=== PATIENT | female | born 1940 | race Caucasian/White ===

== ENCOUNTER 2019-08-16 06:28 | Outpatient (RCR) | payer MEDICARE, OTHER, SELFPAY | END 2019-09-12 23:00 | disposition home or self-care (01) | LOC: SPT 06:28 | PROVIDERS: Family Provider Internal Medicine; PCP Internal Medicine; Visit Provider Orthopaedic Surgery | DX: Z47.1 Aftercare following joint replacement surgery (principal); Z96.642 Presence of left artificial hip joint | CPT/HCPCS: 97110; 97116; 97161 ==

== ENCOUNTER 2019-08-29 10:25 | Outpatient (CLI) | payer MEDICARE, OTHER, SELFPAY ==
--- NOTE | 2019-08-29 10:36 | XRR_ITS ---
PROCEDURE INFORMATION: Exam: XR Left Hip with Pelvis when Performed Exam date and time: 08/29/2019 10:51 AM Age: 78 years old Clinical indication: Hip pain; Left hip; Additional info: Left hip pain for 2 days TECHNIQUE: Imaging protocol: XR Left hip with pelvis when performed. Views: 2 or 3 views. [place] [facility] [place] 08/12/2014 10:53 AM FINDINGS: Bones/joints: The patient has had a prior left total hip arthroplasty. The femoral component is in the acetabular component. There is an unusual lucency in the superior aspect of the acetabular cup. This might represent a fractured component. There is associated periprosthetic lucency at the superior aspect of the acetabular cup. No acute osseous fracture. Soft tissues: No acute soft tissue abnormality. XR/XR hip LT 2-3V wo/w pel* [id number] IMPRESSION: Linear lucency in the superior acetabular cup which may represent fractured component.
== END 2019-08-29 10:26 | disposition home or self-care (01) ==
LOC: RAD 10:31
PROVIDERS: Family Provider Internal Medicine; PCP Internal Medicine; Visit Provider Orthopaedic Surgery
DX: M25.552 Pain in left hip (principal); Z96.642 Presence of left artificial hip joint
CPT/HCPCS: 73502

== ENCOUNTER 2019-10-03 09:57 | Outpatient (CLI) | payer MEDICARE, OTHER, SELFPAY ==
--- NOTE | 2019-10-03 10:03 | XR_ITS ---
WS: [id number] XR hip LT 2-3V wo/w pel* [id number] REASON FOR EXAM: LEFT HIP PAIN FINDINGS: Total hip replacement on the left satisfactory aligned prosthesis satisfactory as well as t he acetabular component. XR/XR hip LT 2-3V wo/w pel* [id number] IMPRESSION: Total hip replacement on the left satisfactory alignment.
== END 2019-10-03 09:58 | disposition home or self-care (01) ==
LOC: RAD 10:01
PROVIDERS: Family Provider Internal Medicine; PCP Internal Medicine; Visit Provider Orthopaedic Surgery
DX: M25.552 Pain in left hip (principal); Z96.642 Presence of left artificial hip joint
CPT/HCPCS: 73502

== ENCOUNTER 2019-10-12 08:51 | Outpatient (RCR) | payer MEDICARE, OTHER, SELFPAY | END 2019-10-13 23:59 | disposition home or self-care (01) | LOC: SPT 08:51 | PROVIDERS: Family Provider Internal Medicine; PCP Internal Medicine; Referring Provider Orthopaedic Surgery; Visit Provider Orthopaedic Surgery | DX: Z47.1 Aftercare following joint replacement surgery (principal); Z96.642 Presence of left artificial hip joint | CPT/HCPCS: 97110; 97162 ==

== ENCOUNTER 2019-10-14 06:00 | Outpatient (RCR) | payer MEDICARE, OTHER, SELFPAY | END 2019-11-01 10:31 | disposition home or self-care (01) | LOC: SPT 06:00 | PROVIDERS: Family Provider Internal Medicine; PCP Internal Medicine; Referring Provider Orthopaedic Surgery; Visit Provider Orthopaedic Surgery | DX: Z47.1 Aftercare following joint replacement surgery (principal); Z96.642 Presence of left artificial hip joint | CPT/HCPCS: 97110; 97116 ==

== ENCOUNTER 2019-12-06 09:27 | Outpatient (CLI) | payer MEDICARE, OTHER, SELFPAY ==
--- NOTE | 2019-12-06 09:42 | XR_ITS ---
WS: [id number] HIP WITH PELVIS LEFT TECHNIQUE: 3 views of the left hip with pelvis CLINICAL INFORMATION: LEFT HIP PAIN COMPARISON: October 03, 2019 FINDINGS: Postoperative left MONICA. Hardware appears well seated. No evidence of hardware loosening. XR/XR hip LT 2-3V wo/w pel* [id number] IMPRESSION: Normal left MONICA.
== END 2019-12-06 09:28 | disposition home or self-care (01) ==
LOC: RAD 09:30
PROVIDERS: Family Provider Internal Medicine; PCP Internal Medicine; Visit Provider Orthopaedic Surgery
DX: M25.552 Pain in left hip (principal); Z96.642 Presence of left artificial hip joint
CPT/HCPCS: 73502

== ENCOUNTER 2020-03-24 14:11 | Outpatient (CLI) | payer MEDICARE, OTHER, SELFPAY ==
--- NOTE | 2020-03-24 14:17 | MM_ITS ---
WS: [id number] LEFT DIGITAL MAMMOGRAPHY WITH CAD CLINICAL INFORMATION: HX OF BREAST CA (RT MAST) COMPARISON: 6 12,019 and 5 15,018 TECHNIQUE: 3 views of the left breast were obtained. FINDINGS: History of right mastectomy. The left breast is composed of extremely dense tissue, which can limit the detection of small underly ing mass lesions. Stable punctate and clustered calcifications left breast. Cardiac pacer. No suspicious focal mass, asymmetry, calcifications, or architectural distortion. No evidence of brooklynn gnancy. MM/[place] [id number] IMPRESSION: BI-RADS: 2-Benign FOLLOW UP: 1 Year Follow-up Recommend return to annual diagnostic mammography.
== END 2020-03-24 14:12 | disposition home or self-care (01) ==
LOC: RADSHAW 14:15
PROVIDERS: PCP Internal Medicine; Visit Provider Internal Medicine
DX: Z85.3 Personal history of malignant neoplasm of breast (principal)
CPT/HCPCS: 77065

== ENCOUNTER 2021-04-16 07:58 | Outpatient (CLI) | payer MEDICARE, OTHER, SELFPAY ==
--- NOTE | 2021-04-16 08:08 | MM_ITS ---
WS: [id number] LEFT DIGITAL MAMMOGRAPHY WITH CAD CLINICAL INFORMATION: HX OF BREAST CA;RT MASTECTOMY HISTORY: COMPARISON: March 24, 2020 TECHNIQUE: 4 views of the left breast were obtained. FINDINGS: The left breast is composed of heterogeneous fibroglandular density tissue, which can limit the detec tion of small underlying mass lesions. Stable diffuse punctate calcifications left breast. Stable clu stered calcifications. No suspicious focal mass, asymmetry, calcifications, or architectural distortion. No evidence of brooklynn gnancy. MM/[place] [id number] IMPRESSION: BI-RADS: 2-Benign FOLLOW UP: 1 Year Follow-up Recommend return to annual diagnostic mammography.
== END 2021-04-16 07:59 | disposition home or self-care (01) ==
LOC: RADSHAW 08:06
PROVIDERS: PCP Internal Medicine; Visit Provider Internal Medicine
DX: Z85.3 Personal history of malignant neoplasm of breast (principal); Z90.11 Acquired absence of right breast and nipple
CPT/HCPCS: 77065

== ENCOUNTER → 2022-01-01 08:36 | Outpatient (BNVA) | payer MEDICARE, SELFPAY | PROVIDERS: PCP Internal Medicine; Visit Provider Internal Medicine | DX: Z45.010 Encounter for checking and testing of cardiac pacemaker pulse generator [battery] (principal) | CPT/HCPCS: 93280 ==

== ENCOUNTER 2022-05-06 13:47 | Outpatient (CLI) | payer MEDICARE, SELFPAY ==
--- NOTE | 2022-05-06 13:57 | MM_ITS ---
WS: [id number] LEFT 3D TOMOSYNTHESIS DIGITAL MAMMOGRAPHY WITH CAD CLINICAL INFORMATION: Z85.3/ HX OF SELF BR CA/ RT MAST HISTORY: History of RIGHT mastectomy COMPARISON: April 16, 2021 TECHNIQUE: 3 views of the left breast were obtained. FINDINGS: The left breast is composed of heterogeneous fibroglandular density tissue, which can limit the detec tion of small underlying mass lesions. Stable punctate and clustered calcifications LEFT breast. No suspicious focal mass, asymmetry, calcifications, or architectural distortion. No evidence of brooklynn gnancy. MM/[place] [id number] IMPRESSION: BI-RADS: 2-Benign FOLLOW UP: 1 Year Follow-up Recommend return to annual diagnostic mammography.
== END 2022-05-06 13:48 | disposition home or self-care (01) ==
PROVIDERS: PCP Internal Medicine; Visit Provider Internal Medicine
DX: Z85.3 Personal history of malignant neoplasm of breast (principal)
CPT/HCPCS: 77061

== ENCOUNTER → 2022-09-21 09:41 | Outpatient (BNVA) | payer MEDICARE, SELFPAY | PROVIDERS: PCP Internal Medicine; Visit Provider Internal Medicine Cardiovascular Disease | DX: I10 Essential (primary) hypertension (principal); Z95.0 Presence of cardiac pacemaker; E78.5 Hyperlipidemia, unspecified; Z87.891 Personal history of nicotine dependence | CPT/HCPCS: 99214 ==

== ENCOUNTER → 2022-10-27 15:46 | Outpatient (BNVA) | payer MEDICARE, SELFPAY | PROVIDERS: PCP Internal Medicine; Visit Provider Internal Medicine Cardiovascular Disease | DX: Z45.010 Encounter for checking and testing of cardiac pacemaker pulse generator [battery] (principal) | CPT/HCPCS: 93296 ==

== ENCOUNTER → 2022-12-14 08:10 | Outpatient (BNVA) | payer MEDICARE, SELFPAY | PROVIDERS: PCP Internal Medicine; Referring Provider Internal Medicine; Visit Provider Orthopaedic Surgery | DX: M16.11 Unilateral primary osteoarthritis, right hip (principal) | CPT/HCPCS: 36415; 73502; 80048; 85025; 99203 ==

== ENCOUNTER → 2023-01-04 10:51 | Outpatient (BNVA) | payer MEDICARE, SELFPAY | PROVIDERS: PCP Internal Medicine; Visit Provider Clinical Nurse Specialist Adult Health | DX: Z01.818 Encounter for other preprocedural examination (principal) | CPT/HCPCS: 81000 ==

== ENCOUNTER 2023-01-17 15:54 | Observation (INO) | payer MEDICARE, SELFPAY ==
[2023-01-07 13:17] VITALS: BMI 23.9
--- NOTE | 2023-01-07 14:42 | P.ANESASSM_ITS ---
Pre-Anesthetic Assessment Height/Weight: Height 1.6 m Weight 61.235 kg Operation Date: 01/17/23 13:05 Proposed Procedures p Total Hip Arthroplasty(Right) - Umer Leung MD Familial anesthetic complications: none Was Beta Benitez taken within 24 hours: Yes Was Clonidine taken within 24 hours: N/A Social No alcohol and No tobacco Exam alert, oriented x 3, clear to auscultation bilaterally and regular rate & rhythm Airway Submandibular: within normal limits Cervical ROM: within normal limits Mallampati: Class II Dentition: false CV/HEM Hypertension Pacemaker Metabolic Hyperlipidemia Anesthetic Plan ASA status: 3 Anesthesia: Regional (specify below) (SAB) Medications/Allergies Home Medications Medication Instructions Recorded Confirmed Last Taken Type amitriptyline 25 mg tablet 25 mg PO QDAY 09/12/19 01/07/23 01/07/23 History simvastatin 40 mg tablet 40 mg PO QDAY 09/12/19 01/07/23 01/07/23 History tramadol 50 mg tablet 50 mg PO TID PRN Pain 09/12/19 01/07/23 01/07/23 History metoprolol tartrate 25 mg tablet 25 mg PO BID #180 tabs 09/23/22 01/07/23 01/07/23 Rx famotidine 20 mg tablet (Pepcid) 20 mg PO DAILY 12/14/22 01/07/23 01/07/23 History aspirin 81 mg tablet,delayed 81 mg PO QDAY 01/04/23 01/07/23 01/07/23 History release (Adult Low Dose Aspirin) topiramate 25 mg tablet 25 mg PO DAILY PRN gerd 01/07/23 01/07/23 Unknown History Allergies Allergy/AdvReac Type Severity Reaction Status Date / Time No Known Allergies Allergy Verified 01/07/23 13:11 FOR[facility], [facility] Anesthesia Medical History (Updated 01/04/23 @ 10:56 by Jonnathan Dwyer NP) Complete heart block hx of 2016 Dyslipidemia GERD (gastroesophageal reflux disease) HTN (hypertension) Pre-op evaluation Surgical History (Updated 01/04/23 @ 10:43 by Jonnathan Dwyer NP) H/O right mastectomy S/P appendectomy S/P hysterectomy Status cardiac pacemaker 2016 Status post hip replacement Family History Grandmother Cancer Sister Dementia Mother Hypertension Denies family history of Diabetes CAD (coronary artery disease) Clotting disorder Hyperlipidemia Psychiatric illness Chronic kidney disease (CKD) Suicide Anesthesia complication Bleeding disorder Family history of premature coronary artery disease Lung disease Stroke Social History Smoking and tobacco status: former smoker Alcohol intake: current Alcohol intake frequency: holidays/special occasions only Substance/Drug Use: never Household members: spouse Marital status: Current occupational status: retired Current gender identity: Female Data Anesthesia Cardiac Studies: No Data to Display
[2023-01-17] VITALS (20 sets, daily range): BP systolic 96–171; BP diastolic 54–102; PULSE 65–77; RESP 12–18; TEMP 36.2–36.8; O2SAT 96–100; BMI 23.9
[2023-01-17] MEDS: oxyCODONE 20 mg ER (12 HR) Tablet PO (12:02)
[2023-01-17] MEDS: gabapentin 300 mg Capsule PO (12:02)
[2023-01-17] MEDS: acetaminophen 500 mg Tablet 1000 MG PO ×2 (12:02→20:45)
[2023-01-17] MEDS: CELEcoxib 200 mg Capsule 400 MG PO (12:03)
[2023-01-17] MEDS: sodium chloride 0.9% 1,000 ML 30 ML IV (12:17)
--- NOTE | 2023-01-17 13:06 | W.PM.OPSFHP ---
Same Day Surgery H&P Indication for Procedure/HPI DATE OF PROCEDURE: January 17, 2023 CHIEF COMPLAINT/INDICATIONFOR SURGICAL PROCEDURE: Osteoarthritis right hip here for total hip arthroplasty PREOP DIAGNOSIS: Osteoarthritis right hip PLANNED PROCEDURE: Operation Date: 01/17/23 13:05 Proposed Procedures p Total Hip Arthroplasty(Right) - Umer Leung MD Medications/Allergies* Home Medications Medication Instructions Recorded Confirmed Type amitriptyline 25 mg tablet 25 mg PO QDAY 09/12/19 01/07/23 History simvastatin 40 mg tablet 40 mg PO QDAY 09/12/19 01/07/23 History tramadol 50 mg tablet 50 mg PO TID PRN Pain 09/12/19 01/07/23 History famotidine 20 mg tablet (Pepcid) 20 mg PO DAILY 12/14/22 01/07/23 History aspirin 81 mg tablet,delayed 81 mg PO QDAY 01/04/23 01/07/23 History release (Adult Low Dose Aspirin) topiramate 25 mg tablet 25 mg PO DAILY PRN gerd 01/07/23 01/07/23 History Allergies/Adverse Reactions Allergy/AdvReac Type Severity Reaction Status Date / Time No Known Allergies Allergy Verified 01/07/23 13:11 Current Medications: Generic Name Dose Route Start Last Admin Trade Name Freq PRN Reason Stop Dose Admin Sodium Chloride 1,000 mls @ 30 mls/hr 01/17/23 11:30 01/17/23 12:17 Sodium Chloride 0.9% IV 01/18/23 11:29 30 mls/hr .Q24H ELISHA Administration Pertinent History/Comorbid Conditions* Medical History (Updated 01/04/23 @ 10:56 by Jonnathan Dwyer NP) Complete heart block hx of 2016 Dyslipidemia GERD (gastroesophageal reflux disease) HTN (hypertension) Pre-op evaluation Surgical History (Updated 01/04/23 @ 10:43 by Jonnathan Dwyer NP) H/O right mastectomy S/P appendectomy S/P hysterectomy Status cardiac pacemaker 2016 Status post hip replacement Family History (Updated 09/21/22 @ 10:01 by Jana Franco) Dementia Sister Cancer Grandmother Hypertension Mother Denies family history of Diabetes CAD (coronary artery disease) Clotting disorder Hyperlipidemia Psychiatric illness Chronic kidney disease (CKD) Suicide Anesthesia complication Bleeding disorder Family history of premature coronary artery disease Lung disease Stroke Social History Smoking and tobacco status: former smoker Alcohol intake: current Alcohol intake frequency: holidays/special occasions only Substance/Drug Use: never Household members: spouse Marital status: Current occupational status: retired Current gender identity: Female Pertinent Exam Findings alert, oriented x 3, clear to auscultation bilaterally, regular rate & rhythm and operative site marked Right hip can be flexed to 90 degrees externally rotate 20 degrees and into the rotated 20 degrees with pain with all extremes of motion. No appreciable distal neurovascular deficits noted Recommendations Surgery/Procedure today Coding Level of Care Code Acute Code for Chg Fwd Diagnoses
--- NOTE | 2023-01-17 13:09 | P.ANESUD_ITS ---
Pre-Anesthetic Update Pre-Anesthetic Assessment: Date of Surgery/Procedure: 01/17/23 Preop Martha gnosis: Osteoarthritis right hip Proposed Procedure: Operation Date: 01/17/23 13:05 Proposed Procedures p Total Hip Arthroplasty(Right) - Umer Leung MD Any changes to Pre-Anesthetic Assessment?: No Last Intake: Intake Last Liquid Date 01/16/23 Last Liquid Time 10:30 Last Solid Date 01/16/23 Last Solid Time 17:00 Vitals: Temperature 97.5 F L 01/17/23 12:15 Temperature Source Temporal Artery S can 01/17/23 12:15 Pulse Rate 73 01/17/23 12:15 Respiratory Rate 18 01/17/23 12:15 Blood Pressure 165/81 01/17/23 12:15 Blood Pressure Leila n 109 01/17/23 12:15 Pulse Oximetry 98 01/17/23 12:15 Oxygen Delivery Me thod Room Air 01/17/23 12:15 Exam: Pre-Anes Outpt Exam: alert, oriented x 3, clear to auscultation bilaterally and regular rate & rhythm Cardiac Studies: No Data to Display
[2023-01-17] MEDS: ceFAZolin 2,000 MG in sodium chloride 0.9% (plus) 50 ML 100 MG IV ×2 (13:23→20:46)
[2023-01-17] MEDS: tranexamic acid 1,000 mg/10mL SDV 1000 MG IV (14:00)
[2023-01-17] MEDS: sodium chloride 0.9% 100 mL Bag XX (14:15)
--- NOTE | 2023-01-17 15:19 | XRR_ITS ---
PROCEDURE INFORMATION: Exam: XR Right Hip Exam date and time: 01/17/2023 3:32 PM Age: 82 years old Clinical indication: Device placement; Prior surgery; Surgery date: Post-operative (0-2 days); Surgery type: Total hip arthroplasty TECHNIQUE: Imaging protocol: Radiologic exam of the right hip. 1image(s) are provided. Views: 1 view hip with pelvis when performed. COMPARISON: CR XR hip RT 2-3V wo/w pel* [id number] 12/14/2022 8:17 AM FINDINGS: Bones/joints: Osseous alignment is maintained.No interval displaced fracture or dislocation is appreciated. Soft tissues: There are post surgical changes including subcutaneous. This includes good alignment of the interval hip prosthetic and acetabular level hardware. No periprosthetic lucency is appreciated. Other findings: No other significant interval changes are appreciated. XR/XR hip RT 1V wo/w pel [id number] IMPRESSION: There is good alignment of the interval right hip prosthetic hardware with the associated overall postsurgical change.
--- NOTE | 2023-01-17 15:21 | P.OP_ITS ---
Operative Report Date of procedure: January 17, 2023 Pre-op diagnosis: Preop Diagnosis Osteoarthritis right hip Post-op diagnosis: same Post-op diagnosis: Same Procedure done: Right total hip arthroplasty Implants: 1) Sebastian 52 mm Trident 2 solid back acetabular shell 2) Size 4 [place] 127 degree neck angle Accolade cemented stem 3} 28mm -4 standard ceramic femoral head 4} size EE MDM metal liner Pathology: none sent Surgeon: Umer Leung Anesthesia: General Estimated blood loss (mL): 100 Condition: stable Disposition: PACU Brief History: 82-year-old male with progressive right hip pain currently worse over the past 4 months. Unable to control with oral medications including tramadol. History of left total hip arthroplasty. Here for right total hip arthroplasty Procedure: The patient was taken to the operating room and anesthesia provided by the anesthesia service. The patient was placed in the lateral position on a pegboard. A timeout was performed. The patient was draped in the usual fashion. A 15 cm long incision was made beginning just proximal to the greater trochanter and extending posteriorly to a point just distal to the trochanter on the posterior border of the trochanter. Dissection was carried down with electrocautery through the subcutaneous fat to the fascia leda which was divided proximally and distally with curved scissors. The anterior two thirds of the gluteus medius and minimus were elevated off the hip with electrocautery. The capsule was divided in a H-like fashion. The hip was dislocated and a neck cut made just above the level of the lesser trochanter. Exposure of the acetabulum was facilitated with the acetabular retractors. Remnants of labrum and peripheral osteophytes were removed with electrocautery and a rongeur. A reamer 2 mm under the size the femoral head was utilized to ream medially to the base of the palm and are. Reaming was then increased in 1 mm intervals until a healthy rim a trabecular bone was encountered. The rim was touched with the reamer the size of the final acetabular shell to be placed. A final Trident 2 acetabular cup of the same size as the final reaming was press- fit into place. The ADM liner was secured. Attention was then focused on the femur. The canal was localized with a canal finder. Broaching was then accomplished until a stable broach size was obtained. A trial reduction with the head and neck provided excellent stability. A distal cement restrictor plug was placed. The canal was then cleaned with pulsatile lavage and dried. It was filled with cement and the final size 4 cemented stem was cemented into place. The femoral head was placed and the hip was reduced. The hip was brought through range of motion and found to be free of impingement and stable. The anterior capsule was reapproximated with 1 Ethibond. The gluteus medius and minimus were repaired through bone with 5 Ethibond and reinforced with 1 Ethibond. The fascial leda was closed with a running 0 Stratafix suture. Deep pelvic tissues were closed with 2-0 Stratafix and the skin with a running 4-0 l Stratafix. The skin was covered with a Prineo dressing and op site dressings.
--- NOTE | 2023-01-17 16:26 | ANE.PACU2 ---
Inpatient post-anesthesia follow up: Airway intact: Yes Vital signs: Temperature 98.2 F Pulse Rate 77 Respiratory Rate 16 Blood Pressure 132/85 Pulse Oximetry 96 Oxygen Delivery Me thod Room Air Oxygen Flow Rate 6 Fraction of Inspir ed Oxygen Hydration adequate: Yes Nausea and vomiting: No Pain level: 1 Mental status: Baseline
[2023-01-17] MEDS: sodium chloride 0.9% 1,000 ML 100 ML IV (17:44)
[2023-01-17] MEDS: morphine 4 mg/mL SDV 1 mL 2 MG IVP (17:53)
--- NOTE | 2023-01-17 17:59 | PC.NURSE ---
Pt BP 180/97. Taken x3. Morphine given for pain control. Pt currently resting quietly, daughter in room. Notified Dr. Leung, states to administer Metoprolol as ordered at 2100 and monitor.
--- NOTE | 2023-01-17 19:08 | PC.NURSE ---
Pt awake and alert. BP resolves to 150/70 without intervention.
[2023-01-17] MEDS: ondansetron 2 mg/ML SDV 2 mL 4 MG IVP (19:30)
[2023-01-17] MEDS: sennosides-docusate Tablet 2 TAB PO (20:45)
[2023-01-17] MEDS: amitriptyline 25 mg Tablet PO (20:45)
[2023-01-17] MEDS: metoprolol tartrate 25 mg Tablet PO (20:45)
[2023-01-17] MEDS: atorvastatin 40 mg Tablet 20 MG PO (20:46)
[2023-01-17] MEDS: CELEcoxib 200 mg Capsule PO (20:46)
[2023-01-18] MEDS: sodium chloride 0.9% 1,000 ML 100 ML IV ×2 (01:27→01:36)
[2023-01-18] MEDS: acetaminophen 500 mg Tablet 1000 MG PO (03:26)
[2023-01-18 03:36] LABS: Hemoglobin 11.1 g/dL (11.5-15.3)
[2023-01-18 03:58] VITALS: BP 144/70; PULSE 68; RESP 17; TEMP 36.6; O2SAT 96
[2023-01-18] MEDS: ceFAZolin 2,000 MG in sodium chloride 0.9% (plus) 50 ML 100 MG IV (05:31)
[2023-01-18 07:53] VITALS: BP 114/70; PULSE 72; RESP 16; TEMP 36.6; O2SAT 98
--- NOTE | 2023-01-18 07:56 | PM.DCS ---
Discharge Providers Date of Admission: 01/17/23 15:54 Date of Discharge: January 18, 2023 Attending Provider at Admission: Umer Fair MD Attending Provider at Discharge: Umer Fair MD Primary Care Provider: Anthony Schmid DO Diagnoses at Discharge Discharge Diagnosis (1) Status post right hip replacement: Status: Acute Reason for Visit Reason for Visit: M16.11 Brief History: 82-year-old female with right progressive hip pain particularly worse over the last few months. Here for elective right total hip arthroplasty Hospital Course Hospital Course The patient tolerated surgery well. They remained hemodynamically stable. They was begun on Lovenox and foot pumps for DVT prophylaxis. The patient was mobilized with therapy beginning the day of surgery and by the first postoperative day independent with the walker. As the pain was adequately controlled and they were fully mobile they were discharged home. Physical Exam Narrative: On the day of discharge the hip incision was clean. The incision was free of drainage. They had no particular swelling about the thigh or distal. No distal neurovascular deficits were noted. Discharge Data Studies Completed and Pending Pending at discharge Category Date Time Status XR hip RT 1V wo/[place] [id number] Routine Exams 01/17/23 15:19 Taken Laboratory Results Hgb 11.1 g/dL (11.5-15.3) L 01/18/23 03:12 Vitals Last Vital Signs Temp 97.9 F 01/18/23 07:53 Pulse 72 01/18/23 07:53 Resp 16 01/18/23 07:53 BP 114/70 01/18/23 07:53 Pulse Ox 98 01/18/23 07:53 O2 Del Method Room Air 01/18/23 03:58 O2 Flow Rate 6 01/17/23 20:00 Discharge Plan Discharge Patient Disposition: Home Condition: Stable Prescriptions: New oxycodone 5 mg Tablet 5 mg PO Q4H PRN (Reason: Moderate Pain) 7 Days Qty: 30 0RF celecoxib 200 mg Capsule 200 mg PO Q12H 14 Days Qty: 28 0RF acetaminophen 500 mg Tablet 1,000 mg PO Q8H 14 Days Qty: 84 0RF Continued aspirin [Adult Low Dose Aspirin] 81 mg tablet,delayed release (DR/EC) 81 mg PO QDAY simvastatin 40 mg tablet 40 mg PO QDAY tramadol 50 mg tablet 50 mg PO TID PRN (Reason: Pain) amitriptyline 25 mg tablet 25 mg PO QDAY famotidine [Pepcid] 20 mg tablet 20 mg PO DAILY metoprolol tartrate 25 mg tablet 25 mg PO BID Qty: 180 3RF topiramate 25 mg Tablet 25 mg PO DAILY PRN (Reason: gerd) Discharge Orders: Discharge Order (Routine); Ordered 01/18/23 Ordered By: Umer Fair Referrals: Desean Briggs FNP [Phys[facility] [employer]] - 01/21/23 11:15 am Discharge Diet: Advance as tolerated Discharge Activity: Limit activity as instructed Patient Instructions: Opioid Safety Activity Restrictions/Additional Instructions: Okay to shower. No soaking incision in tub Apply FirstIce up to 20 min/hr for pain and swelling Take Celebrex twice a day for the next 15 days for pain , discontinue other anti-inflammatories Take Tylenol 500mg (up to 2 tabs) 3 times a day for mild pain Take oxycodone for breakthrough pain. Exercises per physical therapy. May weight-bear as tolerated on total hip arthroplasty IF HAVE ANY PROBLEMS OR QUESTIONS CALL HOSPITAL FLIGHT SURGEON AT AND ASK TO HAVE DR. FAIR PAGED. Discharge Attestations Time Spent in Discharge Care*: other Quality Metrics Clinical Quality Measures [ No reported AMI, CVA or VTE this stay] Coding Level of Care Code Acute Code for Chg Fwd Diagnoses Status post right hip replacement Z96.641
[2023-01-18 10:12] VITALS: PULSE 72; RESP 16; O2SAT 98
[2023-01-18] MEDS: enoxaparin 40 mg/0.4 mL Syringe SUBCUT (10:34)
[2023-01-18] MEDS: aspirin 81 mg EC Tablet PO (10:34)
[2023-01-18] MEDS: famotidine 20 mg Tablet PO (10:35)
[2023-01-18] MEDS: CELEcoxib 200 mg Capsule PO (10:35)
[2023-01-18] MEDS: sennosides-docusate Tablet 2 TAB PO (10:35)
[2023-01-18] MEDS: metoprolol tartrate 25 mg Tablet PO (10:40)
[2023-01-18 10:43] VITALS: PULSE 72; RESP 16; O2SAT 98
== END 2023-01-18 10:44 | disposition home or self-care (01) ==
LOC: MEDSURG 15:55
PROVIDERS: Admitting Provider Orthopaedic Surgery; PCP Internal Medicine; Visit Provider Orthopaedic Surgery
PROC: (CPT 27130; principal; 2023-01-17 12:35)
DX: M16.11 Unilateral primary osteoarthritis, right hip (principal); E78.5 Hyperlipidemia, unspecified; K21.9 Gastro-esophageal reflux disease without esophagitis; I10 Essential (primary) hypertension; Z79.891 Long term (current) use of opiate analgesic; Z79.82 Long term (current) use of aspirin; Z87.891 Personal history of nicotine dependence; Z95.0 Presence of cardiac pacemaker; Z90.11 Acquired absence of right breast and nipple
CPT/HCPCS: 27130; 36415; 73501; 85018; 96372; 97110; 97161; 97165; C1776; G0378; J0690; J1580; J1650; J2270; J2370; J2405; J2704; J7030

== ENCOUNTER → 2023-01-21 10:46 | Outpatient (BNVA) | payer MEDICARE, SELFPAY | PROVIDERS: PCP Internal Medicine; Visit Provider Nurse Practitioner Family | DX: Z96.641 Presence of right artificial hip joint (principal) | CPT/HCPCS: 99024 ==

== ENCOUNTER → 2023-02-18 10:58 | Outpatient (BNVA) | payer MEDICARE, SELFPAY | PROVIDERS: PCP Internal Medicine; Visit Provider Nurse Practitioner Family | DX: Z96.641 Presence of right artificial hip joint (principal) | CPT/HCPCS: 73502; 99024 ==

== ENCOUNTER → 2023-03-29 09:46 | Outpatient (BNVA) | payer MEDICARE, SELFPAY | PROVIDERS: PCP Internal Medicine; Visit Provider Internal Medicine Cardiovascular Disease | DX: E78.5 Hyperlipidemia, unspecified (principal); Z95.0 Presence of cardiac pacemaker; I10 Essential (primary) hypertension; Z87.891 Personal history of nicotine dependence | CPT/HCPCS: 99214 ==

== ENCOUNTER → 2023-05-11 16:27 | Outpatient (BNVA) | payer MEDICARE, SELFPAY | PROVIDERS: PCP Internal Medicine; Visit Provider Internal Medicine | DX: Z45.010 Encounter for checking and testing of cardiac pacemaker pulse generator [battery] (principal) | CPT/HCPCS: 93296 ==

== ENCOUNTER → 2023-05-24 10:33 | Outpatient (BNVA) | payer MEDICARE, SELFPAY | PROVIDERS: PCP Internal Medicine; Visit Provider Physician Assistant | DX: Z96.641 Presence of right artificial hip joint (principal) | CPT/HCPCS: 73502; 99213 ==

== ENCOUNTER 2023-05-31 09:11 | Outpatient (CLI) | payer MEDICARE, SELFPAY ==
--- NOTE | 2023-05-31 09:31 | MM_ITS ---
WS: [id number] DIAGNOSTIC LEFT DIGITAL TOMOSYNTHESIS MAMMOGRAPHY WITH CAD. HISTORY: ANNUAL - HX BR CA COMPARISON: 05/06/2022 and 04/16/2021 Technique: CC, MLO and ML views. Breast composition: The breasts are heterogeneously dense, which may obscure small masses. There are benign scattered calcifications throughout the LEFT breast which are stable. No distortion. IMPRESSION: MM/[place] [id number] BI-RADS: 2-Benign FOLLOW UP: 1 Year Follow-up
== END 2023-05-31 09:12 | disposition home or self-care (01) ==
LOC: RAD 09:12
PROVIDERS: PCP Internal Medicine; Visit Provider Internal Medicine
DX: Z85.3 Personal history of malignant neoplasm of breast (principal)
CPT/HCPCS: 77061; G0279

== ENCOUNTER → 2023-07-28 08:36 | Outpatient (BNVA) | payer MEDICARE, SELFPAY | PROVIDERS: PCP Internal Medicine; Visit Provider Physician Assistant | DX: Z96.641 Presence of right artificial hip joint (principal) | CPT/HCPCS: 73502; 99213 ==

== ENCOUNTER → 2023-08-24 11:30 | Outpatient (BNVA) | payer MEDICARE, SELFPAY | PROVIDERS: PCP Internal Medicine; Visit Provider Internal Medicine Cardiovascular Disease | DX: Z45.010 Encounter for checking and testing of cardiac pacemaker pulse generator [battery] (principal) | CPT/HCPCS: 93296 ==

== ENCOUNTER → 2024-02-02 07:49 | Outpatient (BNVA) | payer MEDICARE, SELFPAY | PROVIDERS: PCP Internal Medicine; Visit Provider Physician Assistant | DX: Z96.641 Presence of right artificial hip joint (principal) | CPT/HCPCS: 73502; 99213 ==

== ENCOUNTER → 2024-03-27 09:49 | Outpatient (BNVA) | payer MEDICARE, SELFPAY | PROVIDERS: PCP Internal Medicine; Visit Provider Internal Medicine Cardiovascular Disease | DX: I44.2 Atrioventricular block, complete (principal); I10 Essential (primary) hypertension; E78.5 Hyperlipidemia, unspecified; Z87.891 Personal history of nicotine dependence | CPT/HCPCS: 99213 ==

== ENCOUNTER → 2024-05-09 08:38 | Outpatient (BNVA) | payer MEDICARE, SELFPAY | PROVIDERS: PCP Internal Medicine; Visit Provider Internal Medicine | DX: Z45.018 Encounter for adjustment and management of other part of cardiac pacemaker (principal) | CPT/HCPCS: 93296 ==

== ENCOUNTER 2024-07-03 08:34 | Outpatient (CLI) | payer MEDICARE, SELFPAY ==
--- NOTE | 2024-07-03 08:39 | MM_ITS ---
WS: [id number] DIAGNOSTIC LEFT DIGITAL TOMOSYNTHESIS MAMMOGRAPHY WITH CAD. HISTORY: HX OF BREAST CANCER, history of RIGHT mastectomy. COMPARISON: 05/06/2022, 04/16/2021, 03/24/2020 Technique: CC, MLO and ML views. Breast composition: The breasts are heterogeneously dense, which may obscure small masses. Scattered benign calcifications in each breast. No pleomorphic or suspicious grouping of calcificatio ns. No mass or distortion. MM/MM diag LT tomosynthesis [id number] IMPRESSION: BI-RADS: 2 - Benign FOLLOW UP: 1 Year Follow-up
== END 2024-07-03 08:35 | disposition home or self-care (01) ==
LOC: RAD 08:36
PROVIDERS: PCP Internal Medicine; Visit Provider Internal Medicine
DX: Z85.3 Personal history of malignant neoplasm of breast (principal); R92.333 Mammographic heterogeneous density, bilateral breasts; R92.1 Mammographic calcification found on diagnostic imaging of breast
CPT/HCPCS: 77061; G0279

== ENCOUNTER → 2024-09-25 13:48 | Outpatient (BNVA) | payer MEDICARE, SELFPAY | PROVIDERS: PCP Internal Medicine; Visit Provider Internal Medicine Cardiovascular Disease | DX: I42.2 Other hypertrophic cardiomyopathy (principal); I10 Essential (primary) hypertension | CPT/HCPCS: 99214 ==

== ENCOUNTER → 2024-12-03 09:15 | Outpatient (BNVA) | payer MEDICARE, SELFPAY | PROVIDERS: PCP Internal Medicine; Visit Provider Internal Medicine Cardiovascular Disease | DX: Z45.010 Encounter for checking and testing of cardiac pacemaker pulse generator [battery] (principal); I10 Essential (primary) hypertension; E78.5 Hyperlipidemia, unspecified; I42.2 Other hypertrophic cardiomyopathy; Z79.82 Long term (current) use of aspirin; Z87.891 Personal history of nicotine dependence; I48.91 Unspecified atrial fibrillation; I25.118 Atherosclerotic heart disease of native coronary artery with other forms of angina pectoris | CPT/HCPCS: 36415; 85025; 85610; 86850; 86900; 99215 ==

== ENCOUNTER 2024-12-05 05:53 | Outpatient (CLI) | payer MEDICARE, SELFPAY ==
--- NOTE | 2024-12-04 08:07 | PC.NURSE ---
pacemaker rep called for procedure on 12/05/24 @ [id number]
[2024-12-05] VITALS (8 sets, daily range): BP systolic 118–167; BP diastolic 57–98; PULSE 65–81; RESP 16–17; TEMP 36.5–36.7; O2SAT 94–97; BMI 24.7; BMI 25.2
[2024-12-05 06:57] LABS: Blood Urea Nitrogen 17 mg/dL (8-23); Carbon Dioxide 25 mmol/L (22-29); Chloride 103 mmol/L (98-107); Creatinine Clr Calc Pharmacy 43.2449; Glucose 109 mg/dL (65-115); Osmolality Calculated 288 mOsm/kg (285-295); Sodium 138 mmol/L (136-145)
--- NOTE | 2024-12-05 07:05 | W.PM.OPSUD ---
Surgery/Procedure H&P Update DATE OF PROCEDURE: December 05, 2024 DATE H&P PERFORMED: 12/03/24 H&P UPDATE INFORMATION: I have reviewed H&P completed within last 30 days, I have examined patient prior to procedure and No changes to prior documentation PREOP DIAGNOSIS: Pacemaker MARTA PRIMARY INDICATION FOR PROCEDURE: Patient with a symptomatic bradycardia, status post permanent pacemaker evaluation, pacemaker MARTA PLANNED PROCEDURE: Operation Date: 12/05/24 07:00 Proposed Procedures p Pacemaker Generator Change - REM/REP Dual PPM(Not Applicable) - Paul Carreon MD PATIENT REASSESSED PRIOR TO SEDATION, WITH NO CHANGE NOTED: Yes PHYSICAL EXAM: alert, oriented x 3, clear to auscultation bilaterally and regular rate & rhythm AIRWAY EVAL/ANESTHESIA PLAN: normal airway, see other exam findings, ASA III, Monitored Anesthesia, Local Anesthesia, Risks, benefits & alternatives of sedation and/or procedure discussed and Patient agrees to continue as planned
--- NOTE | 2024-12-05 07:10 | P.OP_ITS ---
Operative Report Date of procedure: December 05, 2024 Surgeon: Paul Carreon MD Procedure: PROCEDURE: PACEMAKER REVISION PREOPERATIVE DIAGNOSIS: Pacemaker elective replacement indication. POSTOPERATIVE DIAGNOSIS: Pacemaker elective replacement indication. ESTIMATED BLOOD LOSS: None COMPLICATIONS: None. BRIEF HISTORY: The patient is 83-year-old white female who had a permanent pacemaker implantation for symptomatic bradycardia. The patient was found to have elective replacement indication, during routine office followup evaluation. For further management of patient's condition for the symptomatic bradycardia, the patient required a pacemaker revision. Patient required a dual-chamber pacemaker for symptom relief and the need for AV synchrony The procedure was explained to the patient and her family in detail with the risks and benefits. The risks of bleeding, hematoma, vascular injury, infection and other concomitant complications were explained in detail, which the patient understood well and consented to proceed. PROCEDURES PERFORMED: 1. Explantation of the old pacemaker generator. 2. Implantation of the new generator. The patient brought to the Cardiac Human Resource Officer. The left side of the neck and the s ubclavian area were cleaned and draped in a sterile fashion. 1% Xylocaine was used for local anesthetic agent. A 2 inch long incision was made just below the previous pacemaker scar. By sharp and blunt dissection, the pacemaker pocket was accessed. The old generator was delivered from the pocket. The generator was detached from the lead. The new Medtronic generator was attached to the lead. The pacemaker pocket was copiously irrigated with vancomycin solution. Complete hemostasis was achieved. The lead was positioned behind the generator and the generator was attached to the pectoralis fascia by suturing with 0 Surgilon. Sponge counts were confirmed. The pacemaker pocket was closed in layers. Skin was approximated using 4-0 Vicryl. EXPLANTED DEVICE: Pacemaker Generator: Brand: Shashi CHAVARRIA Model number: A2 . Serial number: [id number]. Date of implant: 07/06/2016 IMPLANTED DEVICES: Ventricular Lead: Date of implantation: 07/06/2016 Model number: 5076/52 Serial number: [id number] Make: Medtronic. Atrial lead Date of implantation: 07/06/2016 Model number: 5076/45 Serial number: [id number] Make: Medtronic. Implanted Generator: Date of implantation : 12/05/2024 Brand: Nina Childs. Model number: W1 Serial number: [id number] Make: Medtronic Stimulation Threshold: The ventricular sensing was Not obtained because of dependency.. Ventricular lead impedance was 684Ohms and the pacing threshold was 1.75 volts at 0.4 milliseconds. The atrial sensing was 2.8 millivolts. Atrial lead impedance was 437 ohms and the pacing threshold was 1.25 volts at 0.4 milliseconds. The pacemaker was set for DDDR mode with an upper rate of 130 and a lower rate of 60. A pressure dressing was applied over the pacemaker site. The patient was transferred back to medical floor in stable condition. Sponge counts were correct.
[2024-12-05 07:26] LABS: Anion Gap 14.3 (5-19); Potassium 4.3 mmol/L (3.5-5.1)
--- NOTE | 2024-12-05 09:57 | PC.NURSE ---
Patient refuses SCDs. States she is independent with walking and does not need them.
[2024-12-05] MEDS: losartan 50 mg Tablet 25 MG PO (10:06)
[2024-12-05] MEDS: metoprolol tartrate 25 mg Tablet PO ×2 (10:07→19:04)
[2024-12-05] MEDS: aspirin 81 mg EC Tablet PO (10:07)
[2024-12-05] MEDS: ceFAZolin 2,000 mg SDV 2000 MG IVP (16:25)
[2024-12-05] MEDS: atorvastatin 40 mg Tablet 20 MG PO (20:19)
[2024-12-05] MEDS: sodium chloride 0.9% 1,000 ML 75 ML IV (20:20)
[2024-12-06] VITALS: BP 145/76; PULSE 67; RESP 18; TEMP 36.4; O2SAT 95
[2024-12-06] MEDS: ceFAZolin 2,000 mg SDV 2000 MG IVP ×2 (01:01→06:21)
[2024-12-06 04:00] VITALS: BP 159/94; PULSE 69; RESP 16; TEMP 36.7; O2SAT 97
--- NOTE | 2024-12-06 06:00 | ECG_ITS ---
[facility] Test Date: 2024-12-06 Pat Name: Manjula Husain Department: Room: 251 Gender: Female Customer Experience Analyst: : 1940 Requested By: Paul Carreon Order Number: [id number] Natalie MD: Paul Carreon M.D. Measurements Intervals [place] Rate: 72 P: 56 CA: 172 QRS: -76 QRSD: 154 T: 92 QT: 460 QTc: 507 Interpretive Statements ELECTRONIC VENTRICULAR PACEMAKER ABNORMAL RHYTHM ECG Compared to ECG 04/21/2018 12:17:55 No significant changes Electronically Signed On 12-07-2024 10:43:25 CDT by Paul Carreon M.D. [email or web address]
[2024-12-06 07:19] VITALS: BP 176/91; PULSE 75; RESP 14; TEMP 36.8; O2SAT 97
[2024-12-06] MEDS: metoprolol tartrate 25 mg Tablet PO (08:22)
[2024-12-06 08:23] VITALS: BP 176/91
[2024-12-06] MEDS: aspirin 81 mg EC Tablet PO (08:23)
[2024-12-06] MEDS: losartan 50 mg Tablet 25 MG PO (08:23)
--- NOTE | 2024-12-06 08:51 | P.PN_ITS ---
Subjective 2 Subjective: This patient was admitted to the hospital following the pacemaker revision, for IV antibiotics. Patient is feeling okay with no chest pain or shortness of breath. Vitals are stable. Has no hematoma bleeding at the pacemaker revision site. No new symptoms. Has been getting IV antibiotics. No adverse reactions. Medications: Medication Review Details: Current Medications Aspirin (Aspirin 81 Mg Ec Tablet) 81 mg PO DAILY [facility] Last Admin: 12/06/24 08:23 Dose: 81 mg Atorvastatin Calcium (Atorvastatin 40 Mg Tablet) 20 mg PO BEDTIME [facility] Last Admin: 12/05/24 20:19 Dose: 20 mg Sodium Chloride (Sodium Chloride 0.9%) 1,000 mls @ 75 mls/hr IV .[id number] [facility] Last Admin: 12/05/24 20:20 Dose: 75 mls/hr Losartan Potassium (Losartan 50 Mg Tablet) 25 mg PO DAILY [facility] Last Admin: 12/06/24 08:23 Dose: 25 mg Metoprolol Tartrate (Metoprolol Tartrate 25 Mg Tablet) 25 mg PO BID [facility] Last Admin: 12/06/24 08:22 Dose: 25 mg Tramadol HCl (Tramadol 50 Mg Tablet) 50 mg PO TID PRN PRN Reason: Pain Vitals/I&O/Wt Last Vital Signs Temp 98.3 F 12/06/24 07:19 Pulse 75 12/06/24 07:19 Resp 14 12/06/24 07:19 BP 176/91 12/06/24 08:23 Pulse Ox 97 12/06/24 07:19 O2 Del Method Room Air 12/06/24 07:19 12/05/24 12/06/24 12/06/24 22:59 06:59 14:59 Intake Total 240 / 480 240 / 240 Balance 240 / 480 240 / 240 Weight last 48 hrs Weight 141 lb 3.2 oz Weight 142 lb 8 oz Weight 140 lb Physical Exam 2 Narrative: GENERAL: The patient is alert and oriented times three. Not in any acute distress. HEENT: No significant pallor, icterus or lymphadenopathy.Oral cavity: There are no mucous membrane lesions. NECK: Trachea appears to be central. No masses noted. No JVD or thyromegaly appreciated. RESPIRATORY: Chest is symmetrical. No intercostals muscle retraction or any accessory muscle activation. There is no chest wall tenderness. Breath sounds are heard bilaterally. No rales or rhonchi heard. No evidence of any consolidation. No hematoma or bleeding at the pacemaker revision site. BREASTS: Deferred. HEART: The heart sounds are normal. No S3 or S4. Short systolic murmur the lower sternal border.. No pericardial rub ABDOMEN: No vessel pulsations or distention. No tenderness. No organomegaly appreciated. Bowel sounds are normally heard. : Deferred. RECTAL: Deferred. LYMPHATIC: No lymphadenopathy noted in the neck. EXTREMITIES: No edema or cyanosis. No clubbing. MUSCULOSKELETAL: No acute joint deformities or swelling SKIN: There are no significant rashes or ecchymosis NEUROPSYCHIATRIC: The patient is alert and oriented x3. Appears to be in a good mood. No tremors or rigidity noted. Data 12/05/24 06:16 Other Labs: Laboratory Last Values Sodium 138 mmol/L (136-145) 12/05/24 06:16 Potassium 4.3 mmol/L (3.5-5.1) 12/05/24 06:16 Chloride 103 mmol/L (98-107) 12/05/24 06:16 Carbon Dioxide 25 mmol/L (22-29) 12/05/24 06:16 Anion Gap 14.3 (5-19) 12/05/24 06:16 BUN 17 mg/dL (8-23) 12/05/24 06:16 Creatinine 0.9 mg/dL (0.5-0.9) 12/05/24 06:16 GFR Calculation Not Reportable 12/05/24 06:16 Glucose 109 mg/dL (65-115) 12/05/24 06:16 Calculated Osmolality 288 mOsm/kg (285-295) 12/05/24 06:16 Calcium 9.0 mg/dL (8.5-10.5) 12/05/24 06:16 A&P Assessment and plan (1) HTN (hypertension): Currently normotensive. May continue on the current medications. Qualifiers: Hypertension type: essential hypertension Qualified Code(s): I10 - Essential (primary) hypertension (2) Status cardiac pacemaker: Patient had the pacemaker revision yesterday. Her pacemaker was interrogated this morning. The function was found to be appropriate. Will continue on the current management. (3) Dyslipidemia: May continue on the current medications. (4) Hypertrophic cardiomyopathy: Continue on the current management. Plan Since the patient remained stable, may be discharged home today. Patient was given post pacemaker instructions. Please see the discharge orders. Will make arrangements to have the pacemaker follow-up evaluations in the office PDMP PDMP Reviewed: Not Reviewed Attestations 2 Medical Necessity Statement*: Discharge home today Coding Level of Care Code 37176 Diagnoses Essential hypertension I10 Hypertension type: essential hypertension Status cardiac pacemaker Z95.0 Dyslipidemia E78.5 Hypertrophic cardiomyopathy I42.2
[2024-12-06 11:39] VITALS: BP 165/81; PULSE 71; RESP 15; TEMP 36.9; O2SAT 98
== END 2024-12-06 13:50 | disposition home or self-care (01) ==
LOC: CCL 05:58 → MEDSURG 09:09
PROVIDERS: PCP Family Medicine; Visit Provider Internal Medicine Cardiovascular Disease
DX: Z45.010 Encounter for checking and testing of cardiac pacemaker pulse generator [battery] (principal); I10 Essential (primary) hypertension; E78.5 Hyperlipidemia, unspecified; I42.2 Other hypertrophic cardiomyopathy; Z79.82 Long term (current) use of aspirin; Z82.49 Family history of ischemic heart disease and other diseases of the circulatory system; K21.9 Gastro-esophageal reflux disease without esophagitis; Z87.891 Personal history of nicotine dependence
CPT/HCPCS: 33228; 36415; 80048; 93005; 96374; 97165; 99152; 99153; A4216; C1769; C1786; J0690; J2250; J3010; J3370; J7030; J7050; J9999

== ENCOUNTER → 2024-12-17 14:01 | Outpatient (BNVA) | payer MEDICARE, SELFPAY | PROVIDERS: PCP Family Medicine; Visit Provider Nurse Practitioner Family | DX: Z09 Encounter for follow-up examination after completed treatment for conditions other than malignant neoplasm (principal); I44.2 Atrioventricular block, complete; Z95.0 Presence of cardiac pacemaker; Z79.82 Long term (current) use of aspirin; Z87.891 Personal history of nicotine dependence | CPT/HCPCS: 99213 ==

== ENCOUNTER → 2025-01-29 09:08 | Outpatient (BNVA) | payer MEDICARE, SELFPAY | PROVIDERS: PCP Family Medicine; Visit Provider Physician Assistant | DX: Z96.641 Presence of right artificial hip joint (principal) | CPT/HCPCS: 73502; 99213 ==

== ENCOUNTER → 2025-03-07 08:32 | Outpatient (BNVA) | payer MEDICARE, SELFPAY | PROVIDERS: PCP Family Medicine; Visit Provider Nurse Practitioner Family | DX: I44.2 Atrioventricular block, complete (principal); Z79.82 Long term (current) use of aspirin; Z95.0 Presence of cardiac pacemaker; Z87.891 Personal history of nicotine dependence; Z09 Encounter for follow-up examination after completed treatment for conditions other than malignant neoplasm | CPT/HCPCS: 99213 ==

== ENCOUNTER → 2025-03-20 10:16 | Outpatient (BNVA) | payer MEDICARE, SELFPAY | PROVIDERS: PCP Family Medicine; Visit Provider Internal Medicine Cardiovascular Disease | DX: Z45.018 Encounter for adjustment and management of other part of cardiac pacemaker (principal) | CPT/HCPCS: 93296 ==

== ENCOUNTER 2025-08-02 12:40 | Outpatient (CLI) | payer MEDICARE, SELFPAY ==
--- NOTE | 2025-08-02 12:51 | MM_ITS ---
WS: [id number] Left breast diagnostic 3D tomosynthesis digital mammogram, 08/02/2025 Clinical Data: hx of breast ca Comparison: 07/03/2024, 05/31/2023, 05/06/2022, 04/16/2021, 03/24/2020, 01/24/2019, 01/06/2018, 12/14/2016, 07/28/2015, 07/22/2014, 07/18/2013, 07/17/2012, 07/12/2011, 06/30/2010, 04/08/2028, 04/03/2007. Findings: The left breast shows heterogeneous density. There are scattered benign calcifications throughout the breast. There is a pacemaker generator in the left axilla. There are no secondary signs of carcinoma. MM/MM diag LT tomosynthesis [id number] Impression: 1. Negative left breast mammogram. 2. Recommend yearly left breast mammogram. DENSITY: The breasts are heterogeneously dense, which may obscure small masses. BIRADS: 1 - Negative FOLLOW UP: 1 Year Follow-up The CAD fitting room checker was used.
== END 2025-08-02 12:41 | disposition home or self-care (01) ==
LOC: RAD 12:42
PROVIDERS: PCP Family Medicine; Visit Provider Family Medicine
DX: Z12.31 Encounter for screening mammogram for malignant neoplasm of breast (principal); R92.323 Mammographic fibroglandular density, bilateral breasts; R92.1 Mammographic calcification found on diagnostic imaging of breast; Z95.0 Presence of cardiac pacemaker
CPT/HCPCS: 77061; 77063